=== PATIENT | male | born 1970 | race Caucasian/White ===

== ENCOUNTER 2017-12-21 15:48 | Emergency (ER) | payer OTHER, SELFPAY ==
[2017-12-21 16:35] LABS: #Basophils 0.1 thou/uL (0.0-0.2); #Eosinphils 0.2 thou/uL (0.0-0.7); #Lymphocytes 3.9 thou/uL (1.20-3.40); #Neutrophils 4.9 thou/uL (1.40-6.50); %Basophils 1.1 % (0.0-1.0); %Eosinophils 2.3 % (0.0-10.0); %Lymphocytes 38.2 % (21.0-51.0); %Monocytes 9.9 % (0.0-10.0); %Neutrophils 48.6 % (42.0-75.0); Hemoglobin 15.6 g/dL (14.0-18.0); Mean Corpuscular Hemoglobin 30.8 pg (27.0-31.0); Mean Corpuscular Volume 93.2 fl (80.0-94.0); Mean Platelet Volume 8.2 fL (7.4-10.4); Platelet Count 340 thou/uL (130-400); Red Blood Cell (RBC) Count 5.06 mill/uL (4.70-6.10); White Blood Cell (WBC) Count 10.1 thou/uL (4.8-10.8)
[2017-12-21 16:53] LABS: ALT (SGPT) 44 U/L (8-55); AST (SGOT) 31 U/L (5-34); Albumin 4.3 g/dL (3.5-5.0); Alkaline Phosphatase 95 U/L (40-150); Anion Gap 15 mmol/L (10-20); BUN (Urea Nitrogen) 14 mg/dL (8.9-20.6); Bilirubin, Total 0.3 mg/dL (0.2-1.2); Calc. Creatinine Clearance 0 mL/min (70-130); Calcium 10.1 mg/dL (7.8-10.44); Carbon Dioxide 23 mmol/L (22-29); Chloride 104 mmol/L (98-107); Estimated GFR-MDRD 89; Globulin 3.6 g/dL (2.4-3.5); Glucose 94 mg/dL (70-105); Potassium 4.9 mmol/L (3.5-5.1); Protein, Total 7.9 g/dL (6.0-8.3); Sodium 137 mmol/L (136-145)
[2017-12-21 16:57] LABS: Troponin I Less than 0.010 ng/mL (< 0.028)
[2017-12-21] MEDS ORDERED: Furosemide 40 MG/4 ML VIAL ONE (17:12)
--- NOTE | 2017-12-21 18:47 | RAD ---
CHEST ONE VIEW: History: Dyspnea. Comparison: 03-01-17 FINDINGS: Cardiac silhouette is magnified by projection. Pulmonary vasculature is unremarkable. Media stinum is midline. Bibasilar linear atelectasis. Right hemidiaphragm elevation has increased slightly since the previous exam. No lobar consolidation or evidence of pneumothorax. IMPRESSION: Chronic type findings. No active cardiopulmonary abnormalities are demonstrated. POS: [facility]
[2017-12-21] MEDS ORDERED: cefTRIAXone\\ROCEPHIN 2 GM VIAL ONE (19:12)
[2017-12-21] MEDS ORDERED: Levofloxacin 500 mg/D5W 100 ml Premix Bag ONE (19:17)
--- NOTE | 2017-12-21 19:46 | CT ---
CTA PULMONARY ANGIOGRAM WITH IV CONTRAST AND 3D MIP RECONSTRUCTIONS: 12/21/2017 PROVIDED CLINICAL HISTORY: Shortness of breath. COMPARISON: 03/01/2017 FINDINGS: The heart, pericardium, and great vessels demonstrate an unremarkable CT appearance. There is no nixon dence for central or segmental pulmonary embolus. There is a somewhat linear appearing parenchymal o pacity involving the right lower lobe, adjacent to an elevated right hemidiaphragm. The lungs appear otherwise clear. There is no pleural fluid or pneumothorax apparent. The airway appears patent and of normal caliber. There is no evidence for thoracic lymph node enlargement. Gallstones are seen. The visualized portions of the upper abdomen appear otherwise unremarkable. The osseous structures demonstrate no concerning lytic or blastic lesions. IMPRESSION: 1. No evidence for central or segmental pulmonary embolus. 2. Parenchymal opacity at the right lower lobe, adjacent to an elevated right hemidiaphragm, may ref lect atelectasis or pneumonia. 3. Cholelithiasis. POS: [facility]
== END 2017-12-21 21:15 | disposition home or self-care (01) ==
LOC: ERS 15:48
DX: J18.9 Pneumonia, unspecified organism (principal); I10 Essential (primary) hypertension; F17.220 Nicotine dependence, chewing tobacco, uncomplicated; Z79.899 Other long term (current) drug therapy
CPT/HCPCS: 71045; 71275; 80053; 82553; 83880; 84484; 85025; 93005; 94660; 96365; 96375; J0696; J1940; J1956

== ENCOUNTER 2018-10-23 11:50 | Emergency (ER) | payer OTHER ==
[2018-10-23] MEDS ORDERED: Ketorolac Tromethamine 60 MG/2 ML VIAL ONE (12:19)
[2018-10-23 12:38] LABS: #Basophils 0.1 thou/uL (0.0-0.2); #Eosinphils 0.3 thou/uL (0.0-0.7); #Monocytes 0.8 thou/uL (0.11-0.59); #Neutrophils 5.5 thou/uL (1.40-6.50); %Basophils 1.2 % (0.0-1.0); %Eosinophils 3.5 % (0.0-10.0); %Lymphocytes 30.6 % (21.0-51.0); %Monocytes 8.4 % (0.0-10.0); %Neutrophils 56.3 % (42.0-75.0); Hemoglobin 17.1 g/dL (14.0-18.0); Mean Corpuscular HGB CONC 31.8 g/dL (32.0-36.0); Mean Corpuscular Hemoglobin 30.4 pg (27.0-31.0); Mean Corpuscular Volume 95.6 fL (78.0-98.0); Mean Platelet Volume 8.1 fL (7.4-10.4); Platelet Count 318 thou/uL (130-400); RBC Distribution Width 13.5 % (11.5-14.5); Red Blood Cell (RBC) Count 5.62 mill/uL (4.70-6.10); White Blood Cell (WBC) Count 9.8 thou/uL (4.8-10.8)
[2018-10-23 13:17] LABS: ALT (SGPT) 45 U/L (8-55); AST (SGOT) 29 U/L (5-34); Albumin 4.4 g/dL (3.5-5.0); Alkaline Phosphatase 83 U/L (40-150); Anion Gap 14 mmol/L (10-20); BUN (Urea Nitrogen) 14 mg/dL (8.9-20.6); Bilirubin, Total 0.4 mg/dL (0.2-1.2); Calc. Creatinine Clearance 0 mL/min (70-130); Calcium 10.1 mg/dL (7.8-10.44); Carbon Dioxide 27 mmol/L (22-29); Chloride 99 mmol/L (98-107); Estimated GFR-MDRD Greater than 90; Globulin 3.1 g/dL (2.4-3.5); Glucose 90 mg/dL (70-105); Lipase 13 U/L (8-78); Potassium 5.1 mmol/L (3.5-5.1); Protein, Total 7.5 g/dL (6.0-8.3); Sodium 135 mmol/L (136-145)
[2018-10-23] MEDS ORDERED: Morphine 4 MG/ML VIAL ONE (13:43)
[2018-10-23] MEDS ORDERED: Ondansetron PF 4 MG/2 ML Vial ONE (13:43)
--- NOTE | 2018-10-23 14:00 | RAD ---
RADIOGRAPH CHEST 1 VIEW: Date: 10/23/18 Time: 1203 HOURS HISTORY: 47-year-old male status post chest injury due to fall. Dyspnea. COMPARISON: 12/21/17. FINDINGS: Lungs are hypoinflated. Patchy small air space densities are present at the lateral aspects of the bi lateral lung bases. The mid and upper lung zones are clear. No moderate sized or large pneumothorax. IMPRESSION: 1. Limited study due to hypoinflated lungs. 2. Patchy air space densities at the bilateral lung bases, incompletely imaged. 3. Consider lateral view. JN [] POS: [facility]
--- NOTE | 2018-10-23 14:08 | RAD ---
THREE VIEWS OF THE LEFT RIBS: DATE: 10/23/2018. COMPARISON: None. HISTORY: Injury. FINDINGS: There is patchy nonspecific airspace disease in the left lung base. There is blunting of the left cos tophrenic angle suggesting left pleural effusion and/or left pleural thickening. IMPRESSION: Nonspecific pleural and parenchymal opacity within the left base. No displaced left-sided rib fractu re noted. POS: [facility]
--- NOTE | 2018-10-23 14:14 | CT ---
CTA THORAX WITH CONTRAST: (Computed Tomographic Angiography, chest(noncoronary) with contrast material, and image postprocessin g) (PE protocol) DATE: 10/23/18 HISTORY: 47-year-old male with dyspnea and chest pain. TECHNIQUE: IV injection of iodinated contrast: Isovue. Scan acquisition timing attempted to coincide with iodinated contrast bolus reaching maximal density in pulmonary arteries. 3D MIP reconstructions. FINDINGS: There is no evidence of pulmonary thromboembolism. No thoracic aortic aneurysm or dissection. Mild ai r space densities at the base of the right lower lobe, broad. Smaller air space density in the lingul a. No pleural effusion or pneumothorax. No pulmonary edema. No grossly displaced rib fracture. Fatty liver. IMPRESSION: 1. No evidence of pulmonary thromboembolism. 2. Broad air space density at the base of the right lower lobe abutting the right hemidiaphragm, is subsegmental atelectasis. 3. Smaller focal air space density at the base of the lingula. This is also favored to represent sub segmental atelectasis. There is a smaller chance that this could be early pneumonia. 4. Hepatic steatosis. jn[] POS: [facility]
[2018-10-23] MEDS ORDERED: ISOVUE-370 76%-LOCM 1 ML ONE (17:21)
== END 2018-10-23 14:50 | disposition home or self-care (01) ==
LOC: ERS 11:50
DX: R07.89 Other chest pain (principal); R05 Cough; I11.0 Hypertensive heart disease with heart failure; I50.9 Heart failure, unspecified; F17.220 Nicotine dependence, chewing tobacco, uncomplicated; Z79.899 Other long term (current) drug therapy
CPT/HCPCS: 36415; 71045; 71275; 80053; 83690; 84484; 85025; 96372; 96374; 96375; J1885; J2270; J2405; Q9966

== ENCOUNTER 2019-11-27 12:06 | Observation (INO) | payer SELFPAY ==
[~2019-11-27 12:06] MED LIST: Iopamidol-370 76% 500 ML 1 ML ONE
--- NOTE | 2019-11-27 12:26 | CT ---
CT BRAIN NONCONTRAST: DATE: 11/27/2019 HISTORY: 49-year-old male with acute stroke symptoms: Expressive aphasia, right sided weakness, and altered me ntal status. Dr. Kenny verbally gave this stroke alert report by telephone to Dr. Escamilla of the ER at 12:22 PM 020 FINDINGS: There is no evidence of acute intra-axial or extra-axial hemorrhage. There is no midline shift or any other mass effect. There is no extra-axial fluid collection. There is no evidence of obstructive hydrocephalus. Calvarium is intact. There is a short segment of focal hyperdensity involving the prox imal portion of the basilar artery, but this finding was present on prior CT of 01/04/2017, and therefore consistent with atherosclerosis rather than thrombus. IMPRESSION: No acute intracranial findings.
[2019-11-27 12:33] LABS: #Basophils 0.1 thou/uL (0.0-0.2); #Eosinphils 0.5 thou/uL (0.0-0.7); #Monocytes 1.1 thou/uL (0.11-0.59); %Basophils 1.2 % (0.0-1.0); %Eosinophils 4.3 % (0.0-10.0); %Neutrophils 56.6 % (42.0-75.0); Hemoglobin 16.4 g/dL (14.0-18.0); Mean Corpuscular HGB CONC 31.9 g/dL (32.0-36.0); Mean Corpuscular Volume 97.1 fL (78.0-98.0); Mean Platelet Volume 9.7 fL (7.4-10.4); Platelet Count 267 thou/uL (130-400); Red Blood Cell (RBC) Count 5.28 mill/uL (4.70-6.10); White Blood Cell (WBC) Count 10.6 thou/uL (4.8-10.8)
--- NOTE | 2019-11-27 12:51 | CT ---
CT ANGIOGRAM NECK WITH CONTRAST CT ANGIOGRAM BRAIN WITH CONTRAST: DATE: 11/27/2019 HISTORY: 49-year-old male with acute stroke: Dysarthria, right-sided weakness. Dr. Kenny verbally gave this stroke alert protocol report by telephone to Dr. Escamilla of the ER at 12:48 PM 11/27/2019 TECHNIQUE: After IV contrast injection, arterial bolus chasing technique scan performed from slightly superior t o aortic arch to vertex of head. Coronal and sagittal 3-D MIP reconstructions. FINDINGS: Because of body habitus, and because of elevated bilateral shoulders, evaluation of the great vessels of the upper mediastinum, and at the lower neck, is very limited. Very poor visualization of the bilateral vertebral arteries in the lower half of the neck. Abrupt patient movement and at level of bilateral common carotid arteries, approximately 2 cm distal to their origins. No high-grade stenosis or thrombosis, or heavy atherosclerosis, identified in the upper portions of b ilateral common carotid arteries, bilateral internal carotid arteries, intracranial bilateral vertebral arteries, basilar artery, carotid siphons, bilateral posterior cerebral arteries, A1 and A2 segments of bilateral anterior cerebral arteries, and M1 segments of bilateral middle cerebral arteries. Proximal portions of superior cerebellar arteries, bilateral anterior-inferior cerebral art eries, visualized.. IMPRESSION: 1. Very limited evaluation of proximal neck vessels. 2. No major arterial abnormality identified superior to that.
[2019-11-27 12:53] LABS: Acetaminophen Less than 6.0 mcg/mL (10.0-30.0); Alcohol Less than 10 mg/dL (Less than 10); Salicylate Less than 8.0 mg/dL (15.0-30.0)
--- NOTE | 2019-11-27 13:14 | ULT ---
Venous duplex sonogram right lower extremity HISTORY: Right leg pain and edema. FINDINGS: The right common femoral vein and greater saphenous junction were evaluated along with the femoral, deep femoral, popliteal, and posterior tibial veins. There is good color and spectral Doppler flow, compression, and augmentation. IMPRESSION : No sonographic evidence of DVT within the right lower extremity
[2019-11-27 13:26] LABS: ALT (SGPT) 42 U/L (8-55); AST (SGOT) 30 U/L (5-34); Albumin 3.7 g/dL (3.5-5.0); Alkaline Phosphatase 72 U/L (40-110); Anion Gap 13 mmol/L (10-20); BUN (Urea Nitrogen) 12 mg/dL (8.9-20.6); Bilirubin, Total 0.2 mg/dL (0.2-1.2); CK (CPK) 432 U/L (30-200); Calc. Creatinine Clearance 0 mL/min (70-130); Calcium 9.1 mg/dL (7.8-10.44); Carbon Dioxide 29 mmol/L (22-29); Chloride 97 mmol/L (98-107); Estimated GFR-MDRD Greater than 90; Glucose 74 mg/dL (70-105); Potassium 4.2 mmol/L (3.5-5.1); Protein, Total 6.7 g/dL (6.0-8.3); Sodium 135 mmol/L (136-145)
[2019-11-27] MEDS ORDERED: Ondansetron PF 4 MG/2 ML Vial IVP PRN (13:43)
[2019-11-27] MEDS ORDERED: Sodium Chloride 0.9% 1,000 ML IV SCH (13:43)
[2019-11-27] MEDS ORDERED: Ondansetron ODT 4 MG TAB SL PRN (13:43)
[2019-11-27] MEDS ORDERED: Aspirin Chewable 81 MG TAB ONE (13:48)
--- NOTE | 2019-11-27 13:51 | RAD ---
RADIOGRAPH CHEST 1 VIEW: DATE: 11/27/2019 TIME: 1:38 PM HISTORY: 49-year-old male with altered mental status. Acute stroke. Concern for aspiration. COMPARISON: 10/23/2018 FINDINGS: New finding of elevated right hemidiaphragm. Nonspecific small patchy densities at bilateral lung bas es probably represent mild atelectasis, and appears similar to prior study. Questionable cardiomegaly. No pulmonary edema. Upper lung zones are clear. No pneumothorax. IMPRESSION: 1) new finding of elevated right hemidiaphragm. 2) small patchy densities at bilateral lung bases, probably mild atelectasis.
[2019-11-27 14:11] LABS: Base Excess-Venous -10.4 mmol/L (-2.0 to 3.0); Bicarbonate (HCO3v) 15.1 mmol/L (22.0-28.0); CO2 Tension (PvCO2) 30.5 mmHg (40.0-50.0); Calcium, Ionized 0.56 mmol/L (See Comments:); Chloride 120 mmol/L (98-107); Hemoglobin - Calc 6.5 g/dL (14.0-18.0); Potassium 1.5 mmol/L (3.5-5.1); Sodium 151 mmol/L (138-145); vO2 Saturation-calc 96.3 % (60.0-85.0)
[2019-11-27 14:23] LABS: Actual Bicarbonate (HCO3a) 30.6 mEq/L (22-28); Analyzer IN Cardio ER; Base Excess (BEa) 4.1 mEq/L (-2.0 to +3.0); Calcium, Ionized 1.19 mmol/L (1.12-1.30); Carboxyhemoglobin (COHb) 4.9 gm% (0.0-3.0); Hemoglobin (Hb) 16.6 g/dL (14.0-18.0); Potassium - ABG Lab 4.25 mmol/L (3.70-5.30); pH, Arterial 7.39 (7.35-7.45)
[2019-11-27 14:25] LABS: O2 Tension (PaO2), arterial 55.9 mmHg (80.0-100.0); Puncture Site LB
[2019-11-27 14:34] LABS: Bilirubin Negative (Negative); Blood, Urine Negative (Negative); Clarity Clear (Clear); Glucose, Urine (Dipstick) Normal (Negative); Leukocyte Negative Leu/uL (Negative); Nitrite Negative (Negative); Protein, Urine (Dipstick) Negative (Neg-Trace); Urobilinogen Normal mg/dL (Less than 2)
[2019-11-27 14:55] LABS: Amphetamine Not Detected (NotDetected); Barbiturates Screen Not Detected (NotDetected); Benzodiazepine Screen Not Detected (NotDetected); Cocaine Metabolite Screen Not Detected (NotDetected); Medtox Control Line Valid? VALID (VALID); Medtox Reader # READER 1; Methadone Not Detected (NotDetected); Methamphetamine Not Detected (NotDetected); Opiate Screen Not Detected (NotDetected); Oxycodone Screen Not Detected (NotDetected); Phencyclidine (PCP) Not Detected (NotDetected); THC/Cannabinoid Screen Detected (NotDetected); Tricyclic Screen Detected (NotDetected)
[2019-11-27 15:48] LABS: Troponin I Less than 0.010 ng/mL (< 0.028)
[2019-11-27 17:22] VITALS: BMI 51.6
[2019-11-27] MEDS ORDERED: Acetaminophen 325 MG TAB PO PRN (17:33)
--- NOTE | 2019-11-27 17:38 | PDOC.HHP ---
Hospitalist HPI - History of Present Illness "I was just feeling bad" History of Present Illness: PCP: Dr. Justina Hough Mr. Boyer presented to the ED for AMS with his . Pertinent past history of HTN, CHF, asthma, and CVA in 2017. Today he went to work and began to just " feel bad". He is a poor historian into what that means in terms of what he was feeling but stated he just felt weak and "rough" all over. He does not remember his driving him over from [place] to the [facility] but had called her multiple times this morning asking her to come get him. He attributes the right side weakness to his past stroke but witnesses stated he was stumbling which he normally does not do. also states that he was sweaty and seemed to "black out" at times. No recent sick contacts. Denies chest pain, palpitations, shortness of breath, dizziness. He does not sleep well at night but is able to still sleep in a bed with multiple pillows under him. He wakes multiple times throughout the night but states it is because of his back pain. confirms that he has periods of time while sleeping where it sounds like he is breathing is delayed although she does not confirm snoring. Mr. Boyer claims to have been having to use his inhaler 5+ times throughout the day along with his Symbicort twice a day to function. ED Course: Mr. Boyer was seen in the ER where a NIH and neuro checks were performed. They completed a CTA of the neck and head and a CT of the brain. A chest x ray was completed that showed mild atelectasis. A venous doppler was completed of his right leg due to redness and swelling which ruled out a DVT. Serial troponins were started, with the first being negative, and an ABG was collected which indicated the hypercapnia. Hospitalist ROS - Review of Systems All other systems reviewed; all pertinent +/- noted in HPI/Subj - Medication Medications: CURRENT MEDICATIONS TueNov 27, 2019 13:12 ADOLPH Palacios, Char lisinopril-hydrochlorothiazide TABLET : Strength - 10 mg-12.5 mg : ORAL Patient Dose: 1 tab(s) Oral once a day. doxycycline hyclate oral CAPSULE : Strength - 100 mg : ORAL Patient Dose: 1 cap(s) Oral 2 times a day (before meals). aspirin oral tablet : Strength - 81 mg : ORAL Patient Dose: Unknown. 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 Gastrointestinal: reports: no pertinent history Heme/Onc: reports: no pertinent history Hepatobiliary: reports: no pertinent history Psych: reports: no pertinent history Musculoskeletal: reports: Chronic low back pain Rheumatologic: reports: no pertinent history Infectious Disease: reports: no pertinent history ENT: reports: no pertinent history Renal/: reports: no pertinent history Endocrine: reports: no pertinent history Dermatology: reports: no pertinent history - Past Surgical History Past Surgical History: reports: no pertinent history - Family History Family History: reports: cancer (mother from breast cancer), hypertension - Social History Smoking Status: Never smoker Tobacco Type: chewing tobacco Alcohol: reports: None Drugs: reports: none Living Situation: With Family 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 [employer] Activity level: independent ambulation - Exam General Appearance: NAD, awake alert General - other findings: BP: 109/90, Pulse: 84, Resp: 20, Pain: 0, O2 sat: 94 on (Room Air), Time: 4 Eye: PERRL, anicteric sclera ENT: moist mucosa Neck: supple, symmetric, no JVD, no thyromegaly Heart: RRR, no murmur, no gallops, normal peripheral pulses Respiratory: no wheezes, normal chest expansion, rales Respiratory - other findings: rales R>L Gastrointestinal: soft, non-tender, non-distended, normal bowel sounds Extremities: no cyanosis, 1+ LE edema Skin: normal turgor Skin - other findings: stasis dermatitis to BLE Neurological: cranial nerve grossly intact, normal sensation to touch Neurological - other findings: slight r side weakness to extremities Hospitalist Results - Labs Result Diagrams: 11/27/19 12:10 11/27/19 15:14 Lab results: WBC 10.6 thou/uL (4.8-10.8) 11/27/19 12:10 Hgb 16.4 g/dL (14.0-18.0) 11/27/19 12:10 Hct 51.3 % (42.0-52.0) 11/27/19 12:10 MCV 97.1 fL (78.0-98.0) 11/27/19 12:10 Plt Count 267 thou/uL (130-400) 11/27/19 12:10 Neutrophils % 56.6 % (42.0-75.0) 11/27/19 12:10 ABG pH 7.39 (7.35-7.45) 11/27/19 14:20 ABG pCO2 52.0 mmHg (35.0-45.0) H 11/27/19 14:20 ABG pO2 55.9 mmHg (80.0-100.0) L* 11/27/19 14:20 VBG pCO2 30.5 mmHg (40.0-50.0) L 11/27/19 14:09 VBG pO2 91.2 mmHg (35.0-45.0) H 11/27/19 14:09 Sodium 135 mmol/L (136-145) L 11/27/19 12:10 Potassium 4.2 mmol/L (3.5-5.1) 11/27/19 12:10 Chloride 97 mmol/L (98-107) L 11/27/19 12:10 Carbon Dioxide 29 mmol/L (22-29) 11/27/19 12:10 BUN 12 mg/dL (8.9-20.6) 11/27/19 12:10 Creatinine 0.78 mg/dL (0.7-1.3) 11/27/19 12:10 Glucose 74 mg/dL (70-105) 11/27/19 12:10 Calcium 9.1 mg/dL (7.8-10.44) 11/27/19 12:10 Total Bilirubin 0.2 mg/dL (0.2-1.2) 11/27/19 12:10 AST 30 U/L (5-34) 11/27/19 12:10 ALT 42 U/L (8-55) 11/27/19 12:10 Alkaline Phosphatase 72 U/L (40-110) 11/27/19 12:10 Ammonia 44 umol/L (18-72) 11/27/19 12:39 Creatine Kinase 432 U/L (30-200) H 11/27/19 12:10 Troponin I Less than 0.010 ng/mL (< 0.028) 11/27/19 15:14 Serum Total Protein 6.7 g/dL (6.0-8.3) 11/27/19 12:10 Albumin 3.7 g/dL (3.5-5.0) 11/27/19 12:10 Lipase 63 U/L (8-78) 11/27/19 12:39 Urine Ketones Negative mg/dL (Negative) 11/27/19 13:58 Urine Blood Negative (Negative) 11/27/19 13:58 Urine Nitrite Negative (Negative) 11/27/19 13:58 Ur Leukocyte Esterase Negative Miley/uL (Negative) 11/27/19 13:58 - EKG Interpretation EKG: NSR Pulse 82 - Radiology Interpretation CT scan - head Status: report reviewed by me US - venous Status: report reviewed by me Additional Comment: R lower extremity Chest x-ray Status: report reviewed by me Hospitalist H&P A/P - Problem (1) TIA (transient ischemic attack) Code(s): G45.9 - TRANSIENT CEREBRAL ISCHEMIC ATTACK, UNSPECIFIED Status: Acute (2) Altered mental status Code(s): R41.82 - ALTERED MENTAL STATUS, UNSPECIFIED Status: Acute Qualifiers: Altered mental status type: disorientation Qualified Code(s): R41.0 - Disorientation, unspecified (3) Hypercapnia Code(s): R06.89 - OTHER ABNORMALITIES OF BREATHING Status: Acute (4) Heart failure Code(s): I50.9 - HEART FAILURE, UNSPECIFIED Status: Chronic (5) HTN (hypertension) Code(s): I10 - ESSENTIAL (PRIMARY) HYPERTENSION Status: Chronic Qualifiers: Hypertension type: essential hypertension Qualified Code(s): I10 - Essential (primary) hypertension (6) Tobacco dependence Code(s): F17.200 - NICOTINE DEPENDENCE, UNSPECIFIED, UNCOMPLICATED Status: Chronic (7) Obesity, morbid, BMI 50 or higher Code(s): E66.01 - MORBID (SEVERE) OBESITY DUE TO EXCESS CALORIES Status: Chronic - Plan Plan: * TIA team workup * increase ASA to 325mg daily * start statin tonight, FLPs in AM * continue to monitor for confusion and disorientation * MRI of brain and ECHO ordered for AM * hypercapnea: most likely chronic, patient appears to be compensating, will need follow up sleep study as outpatient * VTE prophylaxis with Lovenox * Tele monitoring * home medications to be restarted once reconciled
[2019-11-27 18:23] LABS: Potassium 4.3 mmol/L (3.5-5.1)
[2019-11-27] MEDS ORDERED: Ventolin HFA Inhaler 60 PUFF INHALER INH PRN (18:47)
[2019-11-27] MEDS ORDERED: Atorvastatin Calcium 40 MG TAB PO SCH (21:00)
[2019-11-27] MEDS ORDERED: Albuterol Sulfate 2.5 mg/3 ml Neb NEB PRN (22:51)
[2019-11-28 05:13] LABS: Hemoglobin A1c 6.5 % (4.0-6.0)
[2019-11-28 05:25] LABS: #Eosinphils 0.5 thou/uL (0.0-0.7); #Lymphocytes 2.2 thou/uL (1.20-3.40); #Monocytes 0.7 thou/uL (0.11-0.59); #Neutrophils 6.4 thou/uL (1.40-6.50); %Basophils 0.5 % (0.0-1.0); %Eosinophils 4.8 % (0.0-10.0); %Monocytes 7.5 % (0.0-10.0); %Neutrophils 65.2 % (42.0-75.0); Hemoglobin 16.3 g/dL (14.0-18.0); Mean Corpuscular HGB CONC 31.4 g/dL (32.0-36.0); Mean Corpuscular Hemoglobin 31.6 pg (27.0-31.0); Mean Platelet Volume 8.4 fL (7.4-10.4); Platelet Count 252 thou/uL (130-400); Red Blood Cell (RBC) Count 5.17 mill/uL (4.70-6.10); White Blood Cell (WBC) Count 9.9 thou/uL (4.8-10.8)
[2019-11-28 05:33] LABS: Anion Gap 13 mmol/L (10-20); BUN (Urea Nitrogen) 16 mg/dL (8.9-20.6); Calc. Creatinine Clearance 225 mL/min (70-130); Calcium 9.3 mg/dL (7.8-10.44); Carbon Dioxide 34 mmol/L (22-29); Cardiac Risk 4.9 (Less than 4.5); Chloride 100 mmol/L (98-107); Cholesterol 200 mg/dl (< 200 Desired); Estimated GFR-MDRD 82; Glucose 118 mg/dL (70-105); HDL Cholesterol 41 mg/dL (>60 Neg Risk); LDL Cholesterol, Calculated 128 mg/dL; Magnesium 2.3 mg/dL (1.6-2.6); Potassium 5.2 mmol/L (3.5-5.1); Sodium 142 mmol/L (136-145); Triglycerides 154 mg/dL (Less than 150)
[2019-11-28] MEDS ORDERED: Mometasone 200 MCG/Formoterol 5 MCG 120 PUFF INHALER INH SCH (06:30)
[2019-11-28] MEDS ORDERED: Lisinopril/Hydrochlorothiazide 10 mg/12.5 mg Tablet PO SCH (09:00)
[2019-11-28] MEDS ORDERED: Enoxaparin Sodium 40 MG/0.4 ML SYRINGE SC SCH (09:00)
[2019-11-28] MEDS ORDERED: Aspirin 325 mg Enteric Coated Tablet PO SCH (09:00)
--- NOTE | 2019-11-28 10:19 | PDOC.HOSPP ---
- Subjective Encounter Date: 11/28/19 Encounter Time: 08:45 Subjective: Mr. Boyer was seen today as follow up for a possible TIA and altered mental status. He is very angry in his room this morning and states that we are "sneaking" tests in without his permission. ECHO had been discussed at bedside yesterday with patient and his on the phone but he states he does not remember that happening. He would like to leave and states that all he agreed to was being watched overnight and not all of the tests. Spoke at length with him regarding his risk factors for TIA and future events and also what information we would be able to gather from the tests and how it would benefit him. Mr. Boyer expresses great fear in being in the hospital during the Covid 19 pandemic and also fear of the financial burdens it may bring to his family. After a lengthy conversation he has agreed to have the ECHO completed but he is refusing to wait for the results. He states that he feels 100% better than yesterday and is back to his normal self. Denies any further confusion or increased weakness. - Objective Vital Signs & Weight: Vital Signs (12 hours) Temp Pulse Resp BP Pulse Ox 11/28/19 07:00 98.1 F 74 18 142/90 H 91 L 11/28/19 03:42 98 F 105 H 22 H 122/75 Weight Weight 381 lb I&O: 11/27/19 11/28/19 11/29/19 06:59 06:59 06:59 Intake Total 1230 Balance 1230 Result Diagrams: 11/28/19 04:54 11/28/19 04:54 Additional Labs: Accuchecks 11/27/19 20:49 POC Glucose 170 H EKG Reviewed by me: Yes (NSR) Hospitalist ROS - Medication Medications: Active Medications Generic Name Dose Route Start Last Admin Trade Name Freq PRN Reason Stop Dose Admin Atorvastatin Calcium 40 mg 11/27/19 21:00 11/27/19 22:12 Lipitor PO 40 mg HS YARELY Administration Mometasone Furoate/Formoterol Fumar 2 puff 11/28/19 06:30 11/28/19 07:35 Dulera 200 Mcg/5 Mcg Inhaler INH 2 puff BID-RT YARELY Administration Quetiapine Fumarate 200 mg 11/27/19 21:00 11/27/19 22:12 Seroquel PO 200 mg HS YARELY Administration - Exam General Appearance: NAD, awake alert Eye: PERRL, anicteric sclera Neck: supple, symmetric, no JVD, no lymphadenopathy Heart: RRR, no murmur, no gallops, normal peripheral pulses Respiratory: CTAB, no wheezes, no rales, no ronchi Gastrointestinal: soft, non-tender, non-distended, normal bowel sounds Extremities: no cyanosis, 1+ LE edema Neurological: cranial nerve grossly intact, no focal deficits, no new deficit Musculoskeletal: normal tone, normal strength Psychiatric: A&O x 3 Hosp A/P (1) TIA (transient ischemic attack) Code(s): G45.9 - TRANSIENT CEREBRAL ISCHEMIC ATTACK, UNSPECIFIED Status: Acute (2) Altered mental status Code(s): R41.82 - ALTERED MENTAL STATUS, UNSPECIFIED Status: Acute Qualifiers: Altered mental status type: disorientation Qualified Code(s): R41.0 - Disorientation, unspecified (3) Hypercapnia Code(s): R06.89 - OTHER ABNORMALITIES OF BREATHING Status: Acute (4) Heart failure Code(s): I50.9 - HEART FAILURE, UNSPECIFIED Status: Chronic (5) HTN (hypertension) Code(s): I10 - ESSENTIAL (PRIMARY) HYPERTENSION Status: Chronic Qualifiers: Hypertension type: essential hypertension Qualified Code(s): I10 - Essential (primary) hypertension (6) Tobacco dependence Code(s): F17.200 - NICOTINE DEPENDENCE, UNSPECIFIED, UNCOMPLICATED Status: Chronic (7) Obesity, morbid, BMI 50 or higher Code(s): E66.01 - MORBID (SEVERE) OBESITY DUE TO EXCESS CALORIES Status: Chronic - Plan ECHO to be completed prior to discharge- report to be sent to his PCP Extensive education over TIA and risk factors moving forward also of risks regarding leaving without results New prescriptions sent to pharmacy Importance of follow up with PCP stressed to patient and he voices his willingness to do so and arrange an appointment
[2019-11-28 11:51] VITALS: BP 135/80; TEMP 98.5
--- NOTE | 2019-11-28 14:24 | EKG ---
Test Reason : AMS Blood Pressure : / mmHG Vent. Rate : 082 BPM Atrial Rate : 082 BPM P-R Int : 164 ms QRS Dur : 110 ms QT Int : 368 ms P-R-T Axes : 047 092 047 degrees QTc Int : 429 ms Normal sinus rhythm Rightward axis Borderline ECG Confirmed by FRED GUILLEN, ANNITA ([id number]), school photograph editor YUKO RODRÍGUEZ ([id number]) on 11/28/2019 2:23:39 PM Referred By: Confirmed By:ANNITA IBARRA MD
--- NOTE | 2019-11-28 15:56 | PDOC.EVN ---
Event Note - Event Note Event Note: Mr. Boyer was seen and examined with Brianne Forrest PA-C on 11/28/2019. He had an episode of confusion and lethargy at work, the full details of which were outlined in the H&H by Ms. Forrest. He denies any chest pain or dyspnea. No fever, or chills. On exam he is morbidly obese, Lung sounds are clear, his heart rate is regular , with no murmurs or rubs. Abdominal examis remarkable for obese abdomen, with no tenderness or guarding, bowel sounds present, and he has lower extremity edema, and palpable pulses Symptoms are a bit vague, and may be related to drug interaction with Marijuana , and Seroquel, ( note UDS results ) which can be both sedating. However he has risk factors for Stroke, and will be placed in Observation for TIA work-up. He is also at risk for BRIDGETTE. and he has been instructed on the need for out patient sleep study. He was given estimates on the cost of an in-home sleep study as opposed to a the cost of a sleep lab. He was also given an estimate on the cost of an Autopap machine. .
--- NOTE | 2019-11-29 15:17 | DIS ---
DATE OF ADMISSION: 11/27/2019 DATE OF DISCHARGE: 11/28/2019 DISPOSITION AND FOLLOWUP: The patient discharged home to follow up with primary care physician Dr. Danyelle Hough within 7 days from discharge. INPATIENT CONSULT: No consultations were done during this hospital stay. CLINICAL COURSE: The patient is a 49-year-old morbidly obese male with a history of congestive heart failure, hypertension, asthma, and CVA in the past, with remaining right side weakness deficits. He presented to the hospital for altered mental status and a feeling of "just feeling bad all over". He was a poor historian into what that entailed, but just that he felt weak throughout his body and he does not remember the drive over here from [place] when his brought him. He was monitored on telemetry overnight. He had 3 negative troponins. Cholesterol showed to be elevated at 200, triglycerides elevated at 154, LDL 128, HDL 41. Blood gas revealed that he was hypercapnic when he was in the ER although he was compensating. He was very nervous about his overall stay here in the hospital due to the COVID -19 pandemic and also financial concerns regarding admission, so was very leery of hospital staff during this time. He wanted to leave [facility] multiple times but he did allow us to complete an echo this morning before discharge and did not wish to wait for the result, but just to have them sent to his PCP. This morning he stated he was completely back to his baseline and wished to leave so as not to get exposed possibly to COVID-19. At that time he was discharged home once the echo was completed and a report will be sent to his PCP. FINAL DIAGNOSES: Transient ischemic attack and altered mental status. DISCHARGE MEDICATIONS: 1. Aspirin 325 mg p.o. daily. New prescription. 2. Atorvastatin 40 mg p.o. at bedtime. New prescription. 3. Seroquel 200 mg p.o. at bedtime. 4. Symbicort 2 puffs twice a day. 5. Albuterol 2 puffs as needed. 6. Lisinopril/HCTZ 05/12.5 one tab p.o. daily. DISCHARGE INSTRUCTIONS: The patient was encouraged to stay for all of his test results, but was adamant that he wanted to leave, so was extensively counseled on the need to follow up with his primary care physician this week. He voices understanding regarding this as does his . A discussion was also had over his hypercapnic test results. We discussed the possibility of him having obstructive sleep apnea and the possible need for a sleep study. He states that finances are tight, but that he will look into the options that were given to him. We priced out an AutoPAP and an outpatient sleep study test for him and gave him the information necessary to make that decision in the future with his PCP. Daily asprin was increased from 81 mg to 325 mg and he was started on a statin for his cholesterol. TIME SPENT: Total time coordinating the discharge of this patient was 35 minutes. [facility] ID[facility] [id number] [facility]
--- NOTE | 2019-12-03 14:18 | CT ---
CT ANGIOGRAM NECK WITH CONTRAST CT ANGIOGRAM BRAIN WITH CONTRAST: DATE: 11/27/2019 HISTORY: 49-year-old male with acute stroke: Dysarthria, right-sided weakness. Dr. Kenny verbally gave this stroke alert protocol report by telephone to Dr. Escamilla of the ER at 12:48 PM 11/27/2019 TECHNIQUE: After IV contrast injection, arterial bolus chasing technique scan performed from slightly superior t o aortic arch to vertex of head. Coronal and sagittal 3-D MIP reconstructions. FINDINGS: Because of body habitus, and because of elevated bilateral shoulders, evaluation of the great vessels of the upper mediastinum, and at the lower neck, is very limited. Very poor visualization of the bilateral vertebral arteries in the lower half of the neck. Abrupt patient movement and at level of bilateral common carotid arteries, approximately 2 cm distal to their origins. No high-grade stenosis or thrombosis, or heavy atherosclerosis, identified in the upper portions of b ilateral common carotid arteries, bilateral internal carotid arteries, intracranial bilateral vertebral arteries, basilar artery, carotid siphons, bilateral posterior cerebral arteries, A1 and A2 segments of bilateral anterior cerebral arteries, and M1 segments of bilateral middle cerebral arteries. Proximal portions of superior cerebellar arteries, bilateral anterior-inferior cerebral art eries, visualized.. IMPRESSION: 1. Very limited evaluation of proximal neck vessels. 2. No major arterial abnormality identified superior to that. Transcribed Date/Time: 12/03/2019 2:17 PM
== END 2019-11-28 15:00 | disposition home or self-care (01) ==
LOC: ERS 12:06 → 2SE 13:59
PROVIDERS: ADMIT Internal Medicine; ATTEND Internal Medicine
DX: G45.9 Transient cerebral ischemic attack, unspecified (principal); R06.89 Other abnormalities of breathing; I11.0 Hypertensive heart disease with heart failure; I50.9 Heart failure, unspecified; J45.909 Unspecified asthma, uncomplicated; F17.220 Nicotine dependence, chewing tobacco, uncomplicated; E66.01 Morbid (severe) obesity due to excess calories; Z68.43 Body mass index [BMI] 50.0-59.9, adult; Z79.899 Other long term (current) drug therapy; Z86.73 Personal history of transient ischemic attack (TIA), and cerebral infarction without residual deficits; Z88.1 Allergy status to other antibiotic agents
CPT/HCPCS: 36415; 36416; 70450; 70496; 70498; 71045; 80048; 80053; 80061; 80306; 80307; 81003; 82010; 82140; 82330; 82550; 82803; 82805; 83036; 83690; 83735; 84484; 85025; 87040; 93005; 93306; 96360; G0378; J7620; Q9967

== ENCOUNTER 2020-11-03 09:21 | Outpatient (CLI) | payer OTHER | END 2020-11-03 09:22 | disposition home or self-care (01) | LOC: BICRAD 09:21 | PROVIDERS: ATTEND Internal Medicine | DX: Z02.71 Encounter for disability determination (principal) ==